=== PATIENT | female | born 1960 | race Caucasian/White ===

== ENCOUNTER → 2017-02-28 | Outpatient (CLI) | payer BC ==
--- NOTE | 2017-03-01 13:15 | MM ---
Reason for exam: screening (asymptomatic). Last mammogram was performed 1 year ago. History: Patient is postmenopausal. Took estrogen for 8 years. Physical Findings: A clinical breast exam by your physician is recommended on an annual basis and results should be correlated with mammographic findings. MG 3D Screening Mammo W/Cad Bilateral CC, MLO, and XCCL view(s) were taken. Prior study comparison: February 27, 2016, bilateral MG 3d screening mammo w/cad. October 24, 2015, left breast MG 3d diag mammo w/cad LT. The breast tissue is heterogeneously dense. This may lower the sensitivity of mammography. There is no discrete abnormality. No significant changes when compared with prior studies. ASSESSMENT: Negative, BI-RAD 1 RECOMMENDATION: Routine screening mammogram of both breasts in 1 year.
== END | disposition home or self-care (01) ==
LOC: RADMAMWWP 09:38
PROVIDERS: ATTEND Internal Medicine
DX: Z12.31 Encounter for screening mammogram for malignant neoplasm of breast (principal)
CPT/HCPCS: 77063; G0202

== ENCOUNTER → 2017-05-06 | Outpatient (CLI) | payer BC ==
--- NOTE | 2017-05-06 10:14 | XR ---
EXAMINATION TYPE: XR ankle complete LT DATE OF EXAM: 05/06/2017 COMPARISON: NONE HISTORY: Pain FINDINGS: Three views of the ankle demonstrate the ankle mortise to be intact and symmetric. The joint spaces are preserved. The osseous structures are intact. Hypertrophic changes involving the ankle joint no gabriel. There is soft tissue edema. Large calcaneal spur noted and there is ossification along the plant ar aponeurosis. IMPRESSION: 1. No definite acute fracture or dislocation, if symptoms persist follow-up study in 7 to 10 days wou ld be suggested. 2. Hypertrophic change and arthropathy. See above.
--- NOTE | 2017-05-06 10:18 | XR ---
EXAMINATION TYPE: XR foot complete LT DATE OF EXAM: 05/06/2017 COMPARISON: NONE HISTORY: Pain TECHNIQUE: Three views are submitted. FINDINGS: The osseous structures are intact and the joint spaces are preserved. There is no acute fracture or dislocation. Diffuse osteopenia noted. There is arthropathy of the MTP joints. Arthropathy of the DI P joints. Hypertrophic spur involving the head of the first metatarsal. No definite acute fracture. H ypertrophic spurring involving the calcaneus noted. Soft tissue ossification along the plantar aponeu rosis. IMPRESSION: 1. No acute fracture or dislocation. If symptoms persist, follow-up exam in 7 to 10 days could be ob tained. 2. Arthropathy and diffuse osteopenia
--- NOTE | 2017-05-09 16:49 | FL ---
EXAMINATION TYPE: FL UGI DATE OF EXAM: 05/06/2017 COMPARISON: NONE HISTORY: Abnormal findings burping indigestion TECHNIQUE: A single contrast UGI study is performed. 2.1 minutes fluoroscopy time was provided for t he procedure. 35 images were obtained. FINDINGS: Esophagus dilates to normal caliber has normal contour to the gastroesophageal junction. Contrast ent ers the gastric sleeve without hesitancy. Contrast passes through the stomach without significant hes itancy. Vertebral radiographs were reviewed. Duodenal cap and sweep appear normal. IMPRESSIONS: 1. Significant hesitancy passing through the gastroesophageal junction into the gastric sleeve is not evident. Contrast passes through the stomach post gastric sleeve with out significant hesitancy.
== END | disposition home or self-care (01) ==
LOC: RADFLMAIN 04-29 08:03
PROVIDERS: ATTEND Internal Medicine
DX: R93.3 Abnormal findings on diagnostic imaging of other parts of digestive tract (principal); M85.872 Other specified disorders of bone density and structure, left ankle and foot; M12.9 Arthropathy, unspecified

== ENCOUNTER → 2018-03-10 | Outpatient (CLI) | payer BC ==
--- NOTE | 2018-03-10 11:17 | XR ---
EXAM TYPE: LUMBAR SPINE X RAY SERIES COMPARISON: NONE HISTORY: Back pain TECHNIQUE: 4 views are submitted. FINDINGS: Alignment is anatomic. The pedicles are intact. The transverse processes are intact. There is no s pondylolysis or spondylolisthesis. There is a large calcification overlying the left kidney measurin g approximately 1.2 cm. Hypertrophic and degenerative change of the spine noted with multilevel facet arthropathy. Pedicles are intact. IMPRESSION: 1. Multilevel degenerative disc disease. Consider follow-up MRI. 2. Left renal calculus suspected.
== END | disposition home or self-care (01) ==
LOC: RADXRMAIN 10:51
PROVIDERS: ATTEND Internal Medicine
DX: M51.37 Other intervertebral disc degeneration, lumbosacral region (principal)
CPT/HCPCS: 72110

== ENCOUNTER → 2018-03-24 | Outpatient (CLI) | payer BC ==
--- NOTE | 2018-04-03 11:17 | MM ---
Reason for exam: screening (asymptomatic). Last mammogram was performed 1 year and 1 month ago. History: Patient is postmenopausal. Took estrogen for 8 years. Physical Findings: A clinical breast exam by your physician is recommended on an annual basis and results should be correlated with mammographic findings. MG 3D Screening Mammo W/Cad Bilateral CC and MLO view(s) were taken. Prior study comparison: February 28, 2017, bilateral MG 3d screening mammo w/cad. February 27, 2016, bilateral MG 3d screening mammo w/cad. There are scattered fibroglandular densities. No suspicious abnormality. No significant changes when compared with prior studies. ASSESSMENT: Negative, BI-RAD 1 RECOMMENDATION: Routine screening mammogram of both breasts in 1 year.
== END | disposition home or self-care (01) ==
LOC: RADMAMWWP 10:17
PROVIDERS: ATTEND Internal Medicine
DX: Z12.31 Encounter for screening mammogram for malignant neoplasm of breast (principal)
CPT/HCPCS: 77063; 77067

== ENCOUNTER → 2019-06-15 | Outpatient (CLI) | payer BC ==
--- NOTE | 2019-06-17 16:50 | XR ---
EXAMINATION TYPE: XR Hip Complete RT DATE OF EXAM: 06/15/2019 COMPARISON: NONE HISTORY: 58-year-old female with pain TECHNIQUE: 2 views FINDINGS: Mild axial joint space narrowing at the hip with moderate marginal spurring. No acute fracture, sublu xation, or dislocation. IMPRESSION: Mild overall right hip OA. No acute osseous abnormality seen.
--- NOTE | 2019-06-18 08:56 | MM ---
Reason for exam: screening (asymptomatic). Last mammogram was performed 1 year and 3 months ago. History: Patient is postmenopausal. Took estrogen for 8 years. Physical Findings: A clinical breast exam by your physician is recommended on an annual basis and results should be correlated with mammographic findings. MG 3D Screening Mammo W/Cad Bilateral CC and MLO view(s) were taken. Prior study comparison: March 24, 2018, bilateral MG 3d screening mammo w/cad. February 28, 2017, bilateral MG 3d screening mammo w/cad. There are scattered fibroglandular densities. No suspicious abnormality. No significant changes when compared with prior studies. ASSESSMENT: Negative, BI-RAD 1 RECOMMENDATION: Routine screening mammogram of both breasts in 1 year.
== END | disposition home or self-care (01) ==
LOC: RADMAMWWP 09:35
PROVIDERS: ATTEND Internal Medicine
DX: Z12.31 Encounter for screening mammogram for malignant neoplasm of breast (principal); M16.11 Unilateral primary osteoarthritis, right hip
CPT/HCPCS: 73502; 77063; 77067

== ENCOUNTER → 2020-11-07 | Outpatient (CLI) | payer BC | END | disposition home or self-care (01) | LOC: RADMAMWWP 16:39 | PROVIDERS: ATTEND Family Medicine | DX: Z12.31 Encounter for screening mammogram for malignant neoplasm of breast (principal); Z78.0 Asymptomatic menopausal state | CPT/HCPCS: 77063; 77067 ==

== ENCOUNTER → 2020-11-21 | Outpatient (CLI) | payer BC ==
--- NOTE | 2020-11-23 13:41 | BD ---
EXAMINATION TYPE: Axial Bone Density DATE OF EXAM: 11/21/2020 COMPARISON: 10/27/2012 CLINICAL HISTORY: 60-year-old female postmenopausal screening Height: 61.2 IN Weight: 247 LBS FRAX RISK QUESTIONS: Secondary Osteoporosis: 3. Menopause before 45: AGE 34 PT HAD ELIA OVARIES REMOVED 4. Malnutrition: RISK FACTORS HISTORY OF: Active: YES Diet low in dairy products/other sources of calcium: YES Postmenopausal woman: ELIA OVARIES REMOVED 1994 Take estrogen and/or progesterone medications: NOT NOW How lon YEARS MEDICATIONS: Additional Medications: VIT D ONCE PER WEEK, PRILOSEC, OZEMPIC, BLOOD PRESSURE MEDS, STATIN, CELEXA EXAM MEASUREMENTS: Bone mineral densitometry was performed using the FeedMagnet System. Bone mineral density as measured about the Lumbar spine is: ----- L1-L4(G/cm2): 1.037 T Score Values are as follows: ----- L2: -1.4 ----- L3: -1.8 ----- L4: -0.7 ----- L1-L4: -1.2 Bone mineral density has: Decreased -3.5% since study of: 10/27/2012 Bone mineral density about the R hip (g/cm2): 0.741 Bone mineral density about the L hip (g/cm2): 0.842 T Score values are as follows: -----R Neck: -2.1 -----L Neck: -1.4 -----R Total: -1.6 -----L Total: -0.5 Bone mineral density has: Decreased -12.9% since study of: 10/27/2012 IMPRESSION: Osteopenia (T Score between -2.5 and -1). There is slightly increased risk of fracture and the patient may be considered for treatment. Re-Screen 2-5 years. NOTE: T-SCORE=SD OF THE YOUNG ADULT MEAN.
== END | disposition home or self-care (01) ==
LOC: RADBDWWP 13:14
PROVIDERS: ATTEND Family Medicine
DX: M85.80 Other specified disorders of bone density and structure, unspecified site (principal)
CPT/HCPCS: 77080

== ENCOUNTER → 2021-06-15 | Outpatient (CLI) | payer BC ==
--- NOTE | 2021-06-16 08:23 | MM ---
Reason for exam: follow-up at short interval from prior study. Last mammogram was performed 7 months ago. History: Patient is postmenopausal. Took estrogen for 8 years. Physical Findings: Nurse did not find any significant physical abnormalities on exam. MG 3D Diag Mammo W/Cad LT CC and MLO view(s) were taken of the left breast. Prior study comparison: November 07, 2020, bilateral MG 3d screening mammo w/cad. June 15, 2019, bilateral MG 3d screening mammo w/cad. March 24, 2018, bilateral MG 3d screening mammo w/cad. There are scattered fibroglandular densities. No significant new findings when compared with previous films. These results were verbally communicated with the patient and result sheet given to the patient on 06/15/21. ASSESSMENT: Benign, BI-RAD 2 RECOMMENDATION: Return to routine screening mammogram schedule for both breasts. Back on schedule for October 2021.
== END | disposition home or self-care (01) ==
LOC: RADMAMWWP 14:01
PROVIDERS: ATTEND Family Medicine
DX: R92.2 Inconclusive mammogram (principal); Z78.0 Asymptomatic menopausal state
CPT/HCPCS: 77061; 77065

== ENCOUNTER 2021-07-29 06:54 | Day surgery (SDC) | payer BC ==
[2021-07-27 13:11] VITALS: BMI 42.0
--- NOTE | 2021-07-28 19:49 | HP ---
HISTORY AND PHYSICAL DATE OF SURGERY: 07/29/2021 Jacinta Gudino is a 60-year-old patient seen with progressive left shoulder pain. We discussed options for treatment. She elected to proceed with arthroscopy. Consent was obtained. Medical clearance was provided. PAST MEDICAL HISTORY: Hypertension, gastroesophageal reflux disease, depression. PAST SURGICAL HISTORY: section, cholecystectomy, gastric bypass surgery, tonsillectomy, sinus surgery. DAILY MEDICATIONS: Lisinopril, meloxicam, omeprazole, Ozempic. ALLERGIES: NONE. SOCIAL HISTORY: She denies current tobacco use. PHYSICAL EVALUATION OF THE LEFT SHOULDER: Flexion is 140 degrees, abduction is 120 degrees. External rotation is 50 degrees. Tenderness along the anterolateral acromion and rotator cuff insertion site along with the acromioclavicular joint. Positive impingement sign at 90 degrees. Positive cross- body adduction sign. Positive drop-arm sign. Distal neurovascular exam intact. Radiographs revealed a type 2 acromion and cystic changes of the tuberosity along with acromioclavicular joint osteoarthritis. Left shoulder MRI revealed a subluxed biceps tendon, a labral tear, moderate osteoarthritis and possible rotator cuff tear. IMPRESSION: 1. Left shoulder impingement with possible rotator cuff tear. 2. Left shoulder acromioclavicular joint osteoarthritis. 3. Hypertension. 4. Gastroesophageal reflux disease. PLAN: Left shoulder arthroscopy with subacromial decompression, possible arthroscopic rotator cuff repair, Driss procedure, biceps tenotomy and debridement. MMODL / IJN: [id number] /
[~2021-07-29 06:54] MED LIST: DEXAMETHASONE SOD PHOSPHATE 4 MG/ML 1 ML VIAL IV ONE; LACTATED RINGERS 1,000 ML IV SCH; LIDOCAINE 1% (10MG/ML) FOR IV START INTRADERMA PRN; ONDANSETRON 4 MG/2 ML VIAL IVP ONE
[2021-07-29 07:52] LABS: Glucose,Whole Blood 82 mg/dL (75-99)
[2021-07-29] MEDS: HYDROmorphone 0.5 MG/0.5 ML SYRINGE IVP PRN ×2 (07:55→10:40)
[2021-07-29] MEDS ORDERED: fentaNYL (PF) 50 MCG/ML 5 ML AMP IV ONE (08:14)
[2021-07-29] MEDS ORDERED: MIDAZOLAM 2 MG/2 ML VIAL IV ONE (08:14)
[2021-07-29] MEDS ORDERED: ROPIVACAINE 5 MG/ML 30 ML VIAL ONE (08:25)
[2021-07-29] MEDS ORDERED: .fentaNYL (PF) 50 MCG/ML 2 ML AMP ONE (08:25)
[2021-07-29] MEDS ORDERED: SUCCINYLCHOLINE CHLORIDE 100 MG/5 ML SYR IV ONE (08:25)
[2021-07-29] MEDS ORDERED: LIDOCAINE 1% INJ 10MG/ML (20 ML MDV) ONE (08:25)
[2021-07-29] MEDS ORDERED: PROPOFOL 10 MG/ML 20 ML VIAL IV ONE (08:25)
--- NOTE | 2021-07-29 09:18 | P.ANPRN ---
Procedure Note - Anesthesia - Nerve Block Performed Left Interscalene Single Time Out Performed: Yes ([id number]) Date of Procedure: 07/29/21 Procedure Start Time: 08:14 Procedure Stop Time: 08:18 Location of Patient: PreOp Indication: Acute Post-Operative Pain, Requested by Surgeon Specifically requested for management of pain by DrLeydi: Rey Marc Sedation Type: Sedate with meaningful contact maintained Preparation: Sterile Prep Position: Supine Catheter: None Needle Types: Pajunk Needle Gauge: 21 Ultrasound used to visualize needle placement: Yes Ultrasound used to observe medication spread: Yes Injectate: 0.5% Ropivacaine (see comment for volume) (30cc) Blood Aspirated: No Pain Paresthesia on Injection Noted: No Resistance on Injection: Normal Image Stored and Saved: Yes Events: Uneventful and Well Tolerated
[2021-07-29 09:53] VITALS: TEMP 96.8
--- NOTE | 2021-07-29 10:03 | P.OP ---
Date of Procedure: 07/29/21 Preoperative Diagnosis: Left shoulder impingement Postoperative Diagnosis: 1. Left shoulder rotator cuff tear 2. Left shoulder impingement 3. Left shoulder acromioclavicular joint osteoarthritis 4. Left shoulder partial long head biceps tendon tear 5. Left shoulder superficial labral tear Procedure(s) Performed: 1. Left shoulder arthroscopic rotator cuff repair 2. Left shoulder arthroscopic subacromial decompression 3. Left shoulder arthroscopic Driss procedure 4. Left shoulder arthroscopic biceps tenotomy 5. Left shoulder arthroscopic debridement labral tear Implants: 15.5 Arthrex swivel lock anchor Anesthesia: GETA, regional (Interscalene block) Surgeon: Rey Marc Garment Worker #1: Dannie Gonzalez Estimated Blood Loss (ml): 11 Pathology: none sent Condition: stable Disposition: PACU Indications for Procedure: 60-year-old patient seen with progressive left shoulder pain. After having treatment options discussed, she elected to proceed with arthroscopy. Operative Findings: See description of procedure Description of Procedure: Patient underwent an interscalene block by department of anesthesia. The patient was then taken to the operative suite. The patient underwent a general anesthetic by the department of anesthesia. The patient was placed into a lateral position and secured. There was appropriate padding of the bony prominence. Left shoulder was then prepped and draped in normal sterile orthopedic fashion. We placed the extremity in 10 pounds of longitudinal traction. A posterior incision was now made for a posterior working portal site. The trocar and cannula were inserted into the glenohumeral joint. Arthroscopy was initiated. Spinal needle was now inserted anteriorly, to ascertain the anterior working portal site. An incision was now made in that area, a trocar was inserted followed by a probe. There was superficial tearing of the superior labrum. There was some partial tearing and hyperemia long head biceps tendon. There were grade 1 chondromalacia changes of the glenohumeral joint. I performed an arthroscopic biceps tenotomy. I debrided out the superficial labral tear. I probed the residual labrum was found to be stable. Instruments were now removed from the glenohumeral joint. Utilizing the posterior working portal site, the trocar and cannula were inserted into the subacromial space. Arthroscopy initiated. I made an incision 2 fingerbreadths lateral to the acromion. I introduced my trocar followed by my ArthroCare ablator. I now began ablating thick subacromial bursal tissue, which exposed the undersurface of the anterior acromion. There was diminished subacromial space. There was a very prominent anterior acromion. A motorized bur was introduced and a subacromial decompression was performed. I also excised some osteophytes off the inferior aspect of the distal clavicle. The AC joint was visualized and noted to be fairly arthritic. The motorized bur was introduced in the anterior portal site and a Driss procedure was performed without difficulty, decompressing the AC joint nicely. I turned my attention to the rotator cuff. There was significant partial tearing along the distal supraspinatus. Upon probing the area was full-thickness perforation present. I now debrided the margins getting down to stable tendon tissue. The defect measured approximately 11.5 cm and was freely mobile over the footprint. I abraded the footprint with a motorized bur. With the assistance of Kerwin STOUT passed 2 everted mattress sutures through good bites of rotator cuff tendon. I punched the hole in the footprint for insertion of an anchor. All 4 limbs of suture were now passed through the eyelet of a 5.5 Arthrex swivel lock anchor. I placed the eyelid into the pre-punched hole. I held that eyelet in position while Kerwin STOUT tension on the sutures and deployed anchor with good fixation noted. All residual suture limbs were now clipped. We had good compression of the tendon along the entire footprint. Instruments now removed from the portal sites. All portal sites were approximated with nylon suture. Sterile dressings were applied followed by a shoulder immobilizer. Dannie STOUT assisted in this case. The patient was awakened, transferred to a bed, and taken to recovery in stable condition.
[2021-07-29 11:08] VITALS: BP 130/76; PULSE 66; RESP 18
== END 2021-07-29 11:34 | disposition home or self-care (01) ==
LOC: OR 06:54
PROVIDERS: ATTEND Orthopaedic Surgery
DX: M75.102 Unspecified rotator cuff tear or rupture of left shoulder, not specified as traumatic (principal); M25.812 Other specified joint disorders, left shoulder; M19.012 Primary osteoarthritis, left shoulder; S46.112A Strain of muscle, fascia and tendon of long head of biceps, left arm, initial encounter; S43.432A Superior glenoid labrum lesion of left shoulder, initial encounter; X58.XXXA Exposure to other specified factors, initial encounter; M94.212 Chondromalacia, left shoulder; M25.712 Osteophyte, left shoulder; I10 Essential (primary) hypertension; K21.9 Gastro-esophageal reflux disease without esophagitis; E11.9 Type 2 diabetes mellitus without complications; Z87.442 Personal history of urinary calculi; F41.9 Anxiety disorder, unspecified; Z97.2 Presence of dental prosthetic device (complete) (partial); F32.A Depression, unspecified; Z87.891 Personal history of nicotine dependence; Z98.891 History of uterine scar from previous surgery; Z90.49 Acquired absence of other specified parts of digestive tract; Z98.84 Bariatric surgery status; Z98.890 Other specified postprocedural states; Z79.1 Long term (current) use of non-steroidal anti-inflammatories (NSAID); Z79.899 Other long term (current) drug therapy; Z91.040 Latex allergy status
CPT/HCPCS: 64415; 76942; 29826; 29827; 29824; C1713; J2250; J1100; J0690; J2405; J2001; J3010 ×2; J2795; J0330; J2704; J1170

== ENCOUNTER → 2021-11-30 | Outpatient (CLI) | payer BC ==
--- NOTE | 2021-12-02 10:39 | MM ---
Reason for exam: screening (asymptomatic). Last mammogram was performed 6 months ago. History: Patient is postmenopausal. Took estrogen for 8 years. Physical Findings: A clinical breast exam by your physician is recommended on an annual basis and results should be correlated with mammographic findings. MG 3D Screening Mammo W/Cad Bilateral CC and MLO view(s) were taken. Prior study comparison: June 15, 2021, left breast MG 3d diag mammo w/cad LT. November 07, 2020, bilateral MG 3d screening mammo w/cad. There is chronic nodularity in the left breast. No significant changes when compared with prior studies. ASSESSMENT: Benign, BI-RAD 2 RECOMMENDATION: Routine screening mammogram of both breasts in 1 year.
== END | disposition home or self-care (01) ==
LOC: RADMAMWWP 15:11
PROVIDERS: ATTEND Family Medicine
DX: Z12.31 Encounter for screening mammogram for malignant neoplasm of breast (principal); Z78.0 Asymptomatic menopausal state
CPT/HCPCS: 77063; 77067

== ENCOUNTER → 2023-01-25 | Outpatient (CLI) | payer BC ==
--- NOTE | 2023-01-26 08:52 | MM ---
Reason for Exam: Screening (asymptomatic). Last mammogram was performed 1 year(s) and 2 month(s) ago. Patient History: Menarche at age 10. First Full-Term at age 19. Left ovary removed at age 34. Right ovary removed at age 34. Postmenopausal. Patient used Estrogen for 8 years. Risk Values: Laya 5 year model risk: 1.5%. NCI Lifetime model risk: 6.6%. Prior Study Comparison: 11/07/2020 Bilateral Screening Mammogram, [facility]. 06/15/2021 Left Diagnostic Mammogram, [facility]. 11/30/2021 Bilateral Screening Mammogram, [facility]. Tissue Density: The breast tissue is heterogeneously dense. This may lower the sensitivity of mammography. Findings: Analyzed By CAD. There is no suspicious group of microcalcifications or new suspicious mass in either breast. Overall Assessment: Benign, BI-RAD 2 Management: Screening Mammogram of both breasts in 1 year. . Patient should continue monthly self-breast exams. A clinical breast exam by your physician is recommended on an annual basis. This exam should not preclude additional follow-up of suspicious palpable abnormalities. Note on Laya scores and lifetime risk: 1. A Laya score greater than 3% is considered moderate risk. If this is the case, consider specialist referral to assess eligibility for a risk reducing agent. 2. If overall lifetime risk for the development of breast cancer is 20% or higher, the patient may qualify for future screening with alternating mammogram and breast MRI. Electronically signed and approved by: Wojciech Lundberg M.D. Radiologis
== END | disposition home or self-care (01) ==
LOC: RADMAMWWP 08:16
PROVIDERS: ATTEND Family Medicine
DX: Z12.31 Encounter for screening mammogram for malignant neoplasm of breast (principal); Z78.0 Asymptomatic menopausal state
CPT/HCPCS: 77063; 77067

== ENCOUNTER → 2024-02-28 | Outpatient (CLI) | payer BC ==
--- NOTE | 2024-03-05 09:03 | MM ---
Reason for Exam: Screening (asymptomatic). Last mammogram was performed 1 year(s) and 1 month(s) ago. Patient History: Menarche at age 10. First Full-Term at age 19. Left ovary removed at age 34. Right ovary removed at age 34. Postmenopausal. Patient has history of breast feeding. Patient used Estrogen for 8 years. Risk Values: Laya 5 year model risk: 1.6%. NCI Lifetime model risk: 6.4%. Prior Study Comparison: 03/24/2018 Bilateral Screening Mammogram, [facility]. 06/15/2019 Bilateral Screening Mammogram, [facility]. 11/07/2020 Bilateral Screening Mammogram, [facility]. 06/15/2021 Left Diagnostic Mammogram, [facility]. 11/30/2021 Bilateral Screening Mammogram, [facility]. 01/25/2023 Bilateral MG 3D screening mammo w/cad, [facility]. Tissue Density: There are scattered areas of fibroglandular density. Findings: Analyzed By CAD. There is no suspicious group of microcalcifications or new suspicious mass in either breast. Overall Assessment: Negative, BI-RAD 1 Management: Screening Mammogram of both breasts in 1 year. . Patient should continue monthly self-breast exams. A clinical breast exam by your physician is recommended on an annual basis. This exam should not preclude additional follow-up of suspicious palpable abnormalities. Note on Laya scores and lifetime risk: 1. A Laya score greater than 3% is considered moderate risk. If this is the case, consider specialist referral to assess eligibility for a risk reducing agent. 2. If overall lifetime risk for the development of breast cancer is 20% or higher, the patient may qualify for future screening with alternating mammogram and breast MRI. Electronically signed and approved by: Wojciech Lundberg M.D. Radiologis
== END | disposition home or self-care (01) ==
LOC: RADMAMWWP 09:46
PROVIDERS: ATTEND Family Medicine
DX: Z12.31 Encounter for screening mammogram for malignant neoplasm of breast (principal); R92.323 Mammographic fibroglandular density, bilateral breasts; Z78.0 Asymptomatic menopausal state
CPT/HCPCS: 77063; 77067